=== PATIENT | female | born 1955 | race Caucasian/White ===

== ENCOUNTER → 2017-09-04 | Outpatient (CLI) | payer OTHER ==
[~2017-09-04] MED LIST: ABILIFY5 MG PO; ADVAIR 100-501 EACH INH; AMLODIPINE-ATO1 EAC5 PO; ASPIR 8181 MG PO; BUPROPION HCL200 MG PO; CALCIUM600 MG PO; CRESTOR10 MG PO; EVISTA60 MG PO; FARXIGA PO; FLAX SEED OIL PO; JANUMET 50-1,01 EACH PO; LIPITOR20 MG PO; MULTI PO; PIOGLITAZONE HC45 MG PO; PRILOSEC OTC20 MG PO; TRAZODONE HCL50 MG PO; ZYRTEC10 MG PO
--- NOTE | 2017-09-05 08:36 | Diagnostic Imaging Report ---
#[id number] - MGSCRBIL #BILATERAL DIGITAL SCREENING MAMMOGRAM WITH CAD: 09/04/2017 CLINICAL: Routine screening. Comparison is made to exams dated: 06/20/2016 mammogram - [facility] and 05/24/2014 mammogram - [facility]. Current study contains 4 films. The tissue of both breasts is heterogeneously dense. This may lower the sensitivity of mammography. Current study was also evaluated with a Computer Aided Detection (CAD) system. There are benign calcifications in both breasts. No significant masses, calcifications, or other findings are seen in either breast. There has been no significant interval change. IMPRESSION: BENIGN There is no mammographic evidence of malignancy. A 1 year screening mammogram is recommended. The patient will be notified by letter of the results. Sony ledbetter/evert:09/04/2017 13:49:10 Mail Teller: KATHY STOVALL [facility] letter sent: Compared to Prior B9 Mammogram BI-RADS: 2 Benign
== END ==
LOC: MAMMO 08:33
PROVIDERS: ATTEND Family Medicine
DX: Z12.31 Encounter for screening mammogram for malignant neoplasm of breast (principal)
CPT/HCPCS: 77067

== ENCOUNTER 2017-12-04 15:37 | Observation (INO) | payer OTHER ==
[~2017-12-04] VITALS: Ht 160 cm; Wt 83.9 kg
[2017-12-04] MEDS ORDERED: DIATRIZOATE MEGL/DIATRIZOA SOD 30 ML BTL PO ONE (16:12)
[2017-12-04 16:13] LABS: BASOPHILS # (AUTO) 0.1 (0.0-0.1); BASOPHILS % 0.3 % (0.0-1.0); EOSINOPHILS # (AUTO) 0.1 (0.0-0.4); EOSINOPHILS % 0.4 % (0.0-6.0); HEMATOCRIT 40.8 % (34.2-44.1); LYMPHOCYTES # (AUTO) 1.6 (1.0-3.2); LYMPHOCYTES % 10.1 % (18.0-39.1); MEAN CORPUSCULAR HEMOGLOBIN 30.7 pg (28-32); MEAN CORPUSCULAR HGB CONC 34.3 g/dL (31-35); MEAN CORPUSCULAR VOLUME 89.5 fL (81-99); MONOCYTES # (AUTO) 0.7 (0.2-0.8); MONOCYTES % 4.2 % (4.4-11.3); NEUTROPHILS # (AUTO) 13.2 (2.1-6.9); NEUTROPHILS % 84.3 % (38.7-80.0); PLATELET COUNT 308 x10e3/uL (140-360); RED BLOOD COUNT 4.56 x10e6/uL (3.6-5.1)
[2017-12-04] MEDS ORDERED: ONDANSETRON HCL INJ 2 MG/ML VIAL IV STA (16:21)
[2017-12-04] MEDS ORDERED: MORPHINE SULFATE 2 MG/ML SYR IV STA (16:21)
[2017-12-04] MEDS ORDERED: SODIUM CHLORIDE 0.9% 1000ML 1,000 ML IV SCH ×2 (16:30→22:00)
[2017-12-04 16:37] LABS: ALBUMIN 4.2 g/dL (3.5-5.0); ALBUMIN/GLOBULIN RATIO 1.2 (0.8-2.0); ANION GAP 20.1 mmol/L (8-16); CALCIUM 10.9 mg/dL (8.4-10.2); CREATININE, SERUM 1.4 mg/dL (0.57-1.11); POTASSIUM 4.1 mmol/L (3.5-5.1)
[2017-12-04 16:38] LABS: CLARITY,URINE CLEAR (CLEAR); COLOR,URINE YELLOW (YELLOW); KETONES,URINE NEGATIVE (NEGATIVE); LEUKOCYTE ESTERASE ,URINE TRACE (NEGATIVE); NITRITE,URINE NEGATIVE (NEGATIVE); PROTEIN,URINE DIPSTICK NEGATIVE (NEGATIVE)
[2017-12-04 16:39] LABS: BILIRUBIN,URINE NEGATIVE (NEGATIVE); URINE UROBILINOGEN 0.2 mg/dL (0.2 - 1)
[2017-12-04 16:48] LABS: AMYLASE 102 U/L (25-125); LIPASE 42 U/L (8-78)
[2017-12-04 16:51] LABS: BACTERIA,URINE MODERATE /HPF; EPITHELIAL CELLS,URINE MODERATE /LPF
[2017-12-04] MEDS ORDERED: CEFTRIAXONE SOD 1 GM VIAL IM ONE (17:15)
--- NOTE | 2017-12-04 18:39 | Diagnostic Imaging Report ---
EXAMINATION: CT of the abdomen and pelvis with contrast. TECHNIQUE: Spiral CT images of the abdomen and pelvis were performed from the lung bases to the lesser trochanters after the intravenous administration of 70 cc of Isovue 370 and the oral administration of dilute Gastrografin. Coronal and sagittal reformatted images were obtained. COMPARISON: None. CLINICAL HISTORY:Left lower quadrant pain, suspect diverticulitis DISCUSSION: ABDOMEN/PELVIS: LOWER THORAX:Unremarkable. HEPATOBILIARY: Normal hepatic size and contour. No focal hepatic lesions. No intra or extrahepatic biliary ductal dilation. GALLBLADDER: No radio-opaque stones or sludge. No wall thickening. SPLEEN: No splenomegaly. PANCREAS: No focal masses or ductal dilatation. ADRENALS: No adrenal nodules. KIDNEYS/URETERS: Moderate left perinephric stranding. No renal or ureteral calculi. Mild left pelvocaliectasis/minimal hydronephrosis. Questionable mild urothelial enhancement in the proximal left ureter (coronal image 62 and series 2, image 38). No solid enhancing masses. No right perinephric stranding or hydronephrosis. PELVIC ORGANS/BLADDER: Bladder is unremarkable, without focal lesions, stones or wall thickening. 1.1 x 1.5 cm fluid density structure adjacent to the urethra below the bladder (series 2, image 76 and coronal image 69), likely representing a urethral diverticulum. Uterus is absent. No adnexal masses. PERITONEUM/RETROPERITONEUM: No free air or fluid. LYMPH NODES: No intra-abdominal, retroperitoneal, pelvic or inguinal lymphadenopathy. VESSELS: The celiac trunk,superior and inferior mesenteric and bilateral renal arteries are patent The portal, superior mesenteric and splenic veins are patent. Atherosclerotic calcification of the abdominal aorta, aortic branches and iliac vessels. GI TRACT: No bowel dilation or evidence of obstruction. No pericolonic inflammatory changes. A few scattered diverticula in the sigmoid colon, without CT evidence of diverticulitis. BONES AND SOFT TISSUE: No aggressive lytic lesions. Degenerative disc changes in the lumbosacral spine, predominantly at L5-S1. Facet hypertrophy L4-L5 and L5-S1. Tiny fat-containing abdominal hernia. IMPRESSION: 1. Findings in the left kidney may reflect recent passage of a renal stone. No renal or ureteral calculi are identified. 2. Questionable mild urothelial enhancement in the proximal left ureter may be represent ascending infection. Correlate with urinalysis. 3. 1.5 cm fluid density fracture adjacent to the urethra likely represents a urethral diverticulum. This can be a source of frequent UTI. 4. Minimal diverticulosis of the sigmoid colon, without diverticulitis. Signed by: Dr. Castro Mcguire M.D. on 12/04/2017 6:35 PM
[2017-12-04] MEDS ORDERED: MORPHINE SULFATE INJ 4 MG/ML INJ IV ONE (19:40)
[2017-12-04] MEDS ORDERED: ONDANSETRON HCL INJ 2 MG/ML VIAL IV PRN (20:45)
[2017-12-04] MEDS ORDERED: MORPHINE SULFATE INJ 4 MG/ML INJ IV PRN (20:45)
[2017-12-04] MEDS ORDERED: DEXTROSE 50% SYRINGE 50 ML IV PRN (20:45)
[2017-12-04] MEDS: INSULIN REGULAR, HUMAN 100 UNIT/1 ML 3ML VIAL SQ SCH (21:00)
[2017-12-04] MEDS ORDERED: SODIUM CHLORIDE 0.9% 50ML 50 ML ONE (21:10)
[2017-12-04] MEDS ORDERED: IOPAMIDOL 370 MG/ML 200 ML INFUS..BTL INJ ONE (21:11)
[2017-12-04 22:15] VITALS: BP 139/65
[2017-12-04 22:32] VITALS: BP 139/65
[2017-12-05] VITALS: BP 149/66
[2017-12-05 04:00] VITALS: BP 126/81
[2017-12-05] MEDS ORDERED: CEFTRIAXONE SOD 1 GM VIAL IV SCH (07:30)
[2017-12-05] MEDS: INSULIN REGULAR, HUMAN 100 UNIT/1 ML 3ML VIAL SQ SCH ×3 (07:30→16:04)
[2017-12-05 08:23] VITALS: BP 138/65
[2017-12-05 09:04] VITALS: BP 130/65
[2017-12-05] MEDS ORDERED: METFORMIN HCL1000 MG (11:36)
[2017-12-05 12:15] VITALS: BP 139/68
[2017-12-05] MEDS ORDERED: METFORMIN HCL500 MG PO (14:03)
[2017-12-05 14:54] LABS: BASOPHILS % 0.2 % (0.0-1.0); EOSINOPHILS # (AUTO) 0.1 (0.0-0.4); EOSINOPHILS % 0.6 % (0.0-6.0); HEMATOCRIT 36.5 % (34.2-44.1); HEMOGLOBIN 12.2 g/dL (12.0-16.0); LYMPHOCYTES # (AUTO) 2.3 (1.0-3.2); LYMPHOCYTES % 21.7 % (18.0-39.1); MEAN CORPUSCULAR HEMOGLOBIN 30.1 pg (28-32); MEAN CORPUSCULAR HGB CONC 33.4 g/dL (31-35); MEAN CORPUSCULAR VOLUME 90.1 fL (81-99); MONOCYTES % 9.2 % (4.4-11.3); NEUTROPHILS # (AUTO) 7.3 (2.1-6.9); NEUTROPHILS % 67.6 % (38.7-80.0); PLATELET COUNT 259 x10e3/uL (140-360); RED BLOOD COUNT 4.05 x10e6/uL (3.6-5.1); RED CELL DISTRIBUTION WIDTH 13.2 % (11.7-14.4)
[2017-12-05 15:11] LABS: ANION GAP 14.7 mmol/L (8-16); CALCIUM 9.5 mg/dL (8.4-10.2); CREATININE, SERUM 1.21 mg/dL (0.57-1.11); POTASSIUM 3.7 mmol/L (3.5-5.1)
[2017-12-05] MEDS ORDERED: LEVAQUIN500 MG PO (16:11)
[2017-12-05 16:22] VITALS: BP 149/66
[2017-12-05] MEDS ORDERED: ATORVASTATIN 20 MG TAB PO SCH (21:00)
[2017-12-06] MEDS ORDERED: RALOXIFENE HCL 60 MG TAB PO SCH (09:00)
[2017-12-06] MEDS ORDERED: ASPIRIN 81 MG CHEW TAB PO SCH (09:00)
== END 2017-12-05 16:47 | disposition home or self-care (01) ==
LOC: ER 15:37 → ERHOLD 20:41 → IMCU 22:09
DX: N10 Acute pyelonephritis (principal); R10.13 Epigastric pain; E86.0 Dehydration; E11.9 Type 2 diabetes mellitus without complications; I10 Essential (primary) hypertension; E78.5 Hyperlipidemia, unspecified; F32.9 Major depressive disorder, single episode, unspecified
CPT/HCPCS: 36415 ×2; 74177; 80048; 80053; 81001; 82150; 82948; 83690; 85025 ×2; 96361; 96374; 96375; 96376; 99284; G0378 ×2; J0696 ×2; J2270 ×3; J2405 ×2; J7030 ×2; Q9967

== ENCOUNTER → 2019-10-12 | Outpatient (CLI) | payer OTHER ==
[~2019-10-12] MED LIST changes: +LEVAQUIN500 MG PO; +METFORMIN HCL1000 MG; +METFORMIN HCL500 MG PO
--- NOTE | 2019-10-12 14:32 | Diagnostic Imaging Report ---
Exam: Bone mineral density study. History: Osteoporosis Comparison: None Discussion: Evaluation of the left hip and lumbar spine was performed. The study is technically adequate. The patient's fracture risk is compared to an age-matched control. The patient denies prior surgery/fracture of the spine, hips or forearm. Left hip femoral neck bone mineral density: 0.753 g/cm2, T-score is -0.9, Z-score is 0.6. Left hip total bone mineral density: 0.788 g/cm2, T-score is -1.3, Z-score is -0.1. Lumbar spine total bone mineral density: 0.944 gm/cm2, T-score is -0.9, Z-score is 0.7. Impression: 1. Bone mineralization by WHO Classification of the left hip is osteopenia, the fracture risk is moderate. 2. Bone mineralization by WHO Classification of the lumbar spine is normal, the fracture risk is not increased. <T score: NL = -1 or higher Osteopenia = -1 to -2.5 Osteoporosis = -2.5 or lower Z score: < - 1.5 concerning for path> Recommendations: Medical evaluation for secondary causes of low bone mineral density may be appropriate. Correlate clinically for the necessity and timing of the next bone mineral density study. Signed by: Dr. Jason Cassidy MD on 10/12/2019 2:29 PM
== END ==
LOC: MAMMO 12:48
PROVIDERS: ATTEND Family Medicine
DX: Z12.31 Encounter for screening mammogram for malignant neoplasm of breast (principal); M81.0 Age-related osteoporosis without current pathological fracture
CPT/HCPCS: 77067; 77080

== ENCOUNTER → 2020-06-29 | Day surgery (SDC) | payer BC, OTHER ==
[~2020-06-29] MED LIST changes: +AMLODIPINE-BEN1 EAC5 PO; +GLIPIZIDE5 MG PO; +GLUCAGON FOR INJ 1 MG VIAL ONE; +HYOSCYAMINE SULFATE 0.5 MG/ML INJ ONE; +JARDIANCE25 MG PO; +LEXAPRO10 MG PO; +LIDOCAINE HCL 2% LOCAL INJ 5 ML SDV VIAL INJ ONE; +MIDAZOLAM HCL 2 MG/2 ML VIAL ONE; +PROPOFOL IV EMULSION 10 MG/ML 20 ML VIAL ONE; +SIMETHICONE 40 MG/0.6 ML BTL ONE; +XANAX0.25 MG PO
[2020-06-29 09:50] VITALS: BP 135/63
== END | disposition home or self-care (01) ==
LOC: OR 05:55
PROVIDERS: ATTEND Internal Medicine Gastroenterology
DX: Z12.11 Encounter for screening for malignant neoplasm of colon (principal); D12.2 Benign neoplasm of ascending colon; K57.30 Diverticulosis of large intestine without perforation or abscess without bleeding; K21.9 Gastro-esophageal reflux disease without esophagitis; E11.22 Type 2 diabetes mellitus with diabetic chronic kidney disease; I12.9 Hypertensive chronic kidney disease with stage 1 through stage 4 chronic kidney disease, or unspecified chronic kidney disease; N18.9 Chronic kidney disease, unspecified; F41.9 Anxiety disorder, unspecified; F32.9 Major depressive disorder, single episode, unspecified; K64.8 Other hemorrhoids; Z01.810 Encounter for preprocedural cardiovascular examination; Z79.82 Long term (current) use of aspirin; Z79.84 Long term (current) use of oral hypoglycemic drugs; Z86.16 Personal history of COVID-19; Z87.891 Personal history of nicotine dependence; Z80.0 Family history of malignant neoplasm of digestive organs
CPT/HCPCS: 36415; 45380; 82948; 93005; J1610; J1980; J2001; J2250; J2704; 45378; 45384

== ENCOUNTER → 2022-06-25 | Outpatient (CLI) | payer MEDICARE ==
[~2022-06-25] MED LIST changes: -GLUCAGON FOR INJ 1 MG VIAL ONE; -HYOSCYAMINE SULFATE 0.5 MG/ML INJ ONE; -LIDOCAINE HCL 2% LOCAL INJ 5 ML SDV VIAL INJ ONE; -MIDAZOLAM HCL 2 MG/2 ML VIAL ONE; -PROPOFOL IV EMULSION 10 MG/ML 20 ML VIAL ONE; -SIMETHICONE 40 MG/0.6 ML BTL ONE
== END ==
LOC: MAMMO 06-20 10:10
PROVIDERS: ATTEND Family Medicine
DX: Z12.31 Encounter for screening mammogram for malignant neoplasm of breast (principal); M85.88 Other specified disorders of bone density and structure, other site
CPT/HCPCS: 77067; 77080

== ENCOUNTER → 2022-09-19 | Outpatient (CLI) | payer MEDICARE | LOC: CARD 13:15 | PROVIDERS: ATTEND Family Medicine | DX: R09.89 Other specified symptoms and signs involving the circulatory and respiratory systems (principal) | CPT/HCPCS: 93880 ==

== ENCOUNTER → 2023-08-08 | Outpatient (REF) | payer MEDICARE | LOC: MAMMO 12:21 | PROVIDERS: ATTEND Family Medicine | DX: Z12.31 Encounter for screening mammogram for malignant neoplasm of breast (principal) | CPT/HCPCS: 77067 ==

== ENCOUNTER → 2023-10-31 | Day surgery (SDC) | payer MEDICARE ==
[2023-10-28 12:06] LABS: BASOPHILS # (AUTO) 0.1 (0.0-0.1); BASOPHILS % 0.5 % (0.0-1.0); EOSINOPHILS # (AUTO) 0.1 (0.0-0.4); EOSINOPHILS % 0.7 % (0.0-6.0); HEMATOCRIT 39.2 % (34.2-44.1); LYMPHOCYTES % 30.9 % (18.0-39.1); MEAN CORPUSCULAR HEMOGLOBIN 30.5 pg (28-32); MEAN CORPUSCULAR HGB CONC 33.2 g/dL (31-35); MONOCYTES # (AUTO) 0.8 (0.2-0.8); MONOCYTES % 8.2 % (4.4-11.3); NEUTROPHILS # (AUTO) 5.6 (2.1-6.9); NEUTROPHILS % 59.1 % (38.7-80.0); PLATELET COUNT 320 x10e3/uL (140-360); RED BLOOD COUNT 4.26 x10e6/uL (3.6-5.1); RED CELL DISTRIBUTION WIDTH 13.9 % (11.7-14.4); WHITE BLOOD COUNT 9.55 x10e3/uL (4.8-10.8)
[~2023-10-31] MED LIST changes: +FENTANYL CITRATE/PF 100MCG/2 ML INJ ONE; +HYOSCYAMINE SULFATE 0.5 MG/ML INJ ONE; +LIDOCAINE HCL 2% LOCAL INJ 5 ML SDV VIAL INJ ONE; +MIDAZOLAM HCL 2 MG/2 ML VIAL ONE; +MOUNJARO5 MG/0.5 M INJ; +PROPOFOL IV EMULSION 10 MG/ML 50 ML VIAL IV ONE
[2023-10-31] MEDS: LACTATED RINGER'S 1,000 ML ONE (12:04)
== END | disposition home or self-care (01) ==
LOC: OR 05:56
PROVIDERS: ATTEND Internal Medicine Gastroenterology
DX: Z12.11 Encounter for screening for malignant neoplasm of colon (principal); K63.5 Polyp of colon; K64.8 Other hemorrhoids; I10 Essential (primary) hypertension; E11.9 Type 2 diabetes mellitus without complications; E78.5 Hyperlipidemia, unspecified; F41.9 Anxiety disorder, unspecified; F32.A Depression, unspecified; Z01.812 Encounter for preprocedural laboratory examination; Z79.82 Long term (current) use of aspirin; Z79.84 Long term (current) use of oral hypoglycemic drugs; Z79.85 Long-term (current) use of injectable non-insulin antidiabetic drugs; Z79.899 Other long term (current) drug therapy; Z86.73 Personal history of transient ischemic attack (TIA), and cerebral infarction without residual deficits; Z80.0 Family history of malignant neoplasm of digestive organs
CPT/HCPCS: 36415; 45385; 85025; 93005; J1980; J2001; J2250; J2704; J3010; J7121; 45378

== ENCOUNTER → 2024-08-09 | Outpatient (REF) | payer MEDICARE ==
[~2024-08-09] MED LIST changes: -FENTANYL CITRATE/PF 100MCG/2 ML INJ ONE; -HYOSCYAMINE SULFATE 0.5 MG/ML INJ ONE; -LIDOCAINE HCL 2% LOCAL INJ 5 ML SDV VIAL INJ ONE; -MIDAZOLAM HCL 2 MG/2 ML VIAL ONE; -PROPOFOL IV EMULSION 10 MG/ML 50 ML VIAL IV ONE
== END ==
LOC: MAMMO 12:51
PROVIDERS: ATTEND Family Medicine
DX: Z12.31 Encounter for screening mammogram for malignant neoplasm of breast (principal); M85.88 Other specified disorders of bone density and structure, other site
CPT/HCPCS: 77067; 77080